=== PATIENT | male | born 1950 | race Caucasian/White ===

== ENCOUNTER → 2017-09-30 | Day surgery (SDC) | payer MEDICARE, OTHER ==
[2017-09-28 13:02] VITALS: BMI 34.2
[~2017-09-30] MED LIST: SIMETHICONE 40 MG/0.6 ML DROPS 2,000 MG/30 ML BOTTLE PO ONE
== END ==
LOC: ORWHC2ENDO 06:54
PROVIDERS: ATTEND Internal Medicine Gastroenterology
DX: D64.9 Anemia, unspecified (principal); K92.2 Gastrointestinal hemorrhage, unspecified; N18.6 End stage renal disease; Z99.2 Dependence on renal dialysis
CPT/HCPCS: 91110

== ENCOUNTER 2018-01-06 01:01 | Inpatient (IN) | payer MEDICARE, OTHER ==
--- NOTE | 2018-01-06 01:30 | ED ---
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 The patient states that he had started having symptoms just prior to lunch. He was seen at [facility] for this pain, stating that they performed blood tests and an ultrasound. He states they told him that he had gallstones and they [facility]. The patient states that he has not really had any change in the pain and per was hoping to receive some pain relief in addition to a definitive diagnosis. He indicates diffuse, constant, moderate pain. It is an aching and a fullness. States his abdomen does feel distended. He has not noted worsening or relieving factors. They did try a couple of oral medications any states that it didn't really get much relief. He has had some nausea. No change in bowel movements. No change in urination, with the patient states that he is on dialysis. he did have a normal dialysis session early this morning MD Complaint: abdominal pain Onset/Timin -: hour(s) Location: diffuse Migration to: no migration Quality: cramping, aching, fullness Consistency: constant Improves With: nothing Worsens With: nothing Associated Symptoms: nausea - Related Data Home Medications Medication Instructions Recorded Confirmed Aspirin EC [Ecotrin Low Dose] 81 mg PO DAILY 12/25/15 09/28/17 Folic Acid 1 mg PO DAILY 12/25/15 09/28/17 Rivaroxaban [Xarelto] 20 mg PO W/SUPPER 12/25/15 09/28/17 Thiamine [Vitamin B-1] 100 mg PO DAILY 12/25/15 09/28/17 Furosemide [Lasix] 40 mg PO BID 01/28/16 09/28/17 Levothyroxine Sodium [Synthroid] 25 mcg PO DAILY 01/28/16 09/28/17 Omeprazole [PriLOSEC] 20 mg PO AC-BRKFST 09/28/17 09/28/17 Sevelamer [Renvela] 800 mg PO AC-TID 09/28/17 09/28/17 predniSONE 10 mg PO DAILY 09/28/17 09/28/17 Previous Rx's Medication Instructions Recorded Ipratropium-Albuterol Nebulize 3 ml INHALATION RT-QID ampul.neb 02/17/16 [Duoneb 0.5 mg-3 mg/3 ml Soln] Allergies Allergy/AdvReac Type Severity Reaction Status Date / Time No Known Allergies Allergy Verified 09/28/17 12:42 Review of Systems ROS Statement: Those systems with pertinent positive or pertinent negative responses have been documented in the HPI. ROS Other: All systems not noted in ROS Statement are negative. Constitutional: Denies: fever, chills, weakness Respiratory: Denies: cough, dyspnea Cardiovascular: Denies: chest pain, palpitations, edema Gastrointestinal: Reports: abdominal pain, nausea. Denies: vomiting, diarrhea, constipation Musculoskeletal: Denies: back pain Skin: Denies: rash Neurological: Denies: headache, weakness, numbness Past Medical History Past Medical History: Atrial Fibrillation, Coronary Artery Disease (CAD), Chest Pain / Angina, Heart Failure, COPD, Diabetes Mellitus, GERD/Reflux, GI Bleed, Hyperlipidemia, Hypertension, Renal Disease, Respiratory Disorder, Thyroid Disorder Additional Past Medical History / Comment(s): Other HX: Cardiac arrest with CPR and prolonged intubation requiring trach and peg, NIDDM type II, polyneuropathy, bowel obstruction, hiatal hernia, 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 O2/3L NC History of Any Multi-Drug Resistant Organisms: MRSA Date of last positivie culture/infection: 12/25/15 MDRO Source:: BLOOD Additional Past Surgical History / Comment(s): 01/2016 PICC line for ABX, 05/2013 trach and peg, 1992 torn larynx with surgical repair. OTHER SURGICAL HX UNKNOWN TO F STAFF Past Anesthesia/Blood Transfusion Reactions: No Reported Reaction Additional Past Anesthesia/Blood Transfusion Reaction / Comment(s): Pt received blood with last admission 12/2015 without reaction. Past Psychological History: No Psychological Hx Reported Smoking Status: Former smoker Past Alcohol Use History: None Reported Past Drug Use History: None Reported - Past Family History Father Family Medical History: Cancer Mother Family Medical History: Cancer Brother(s) Family Medical History: No Reported History Sister(s) Family Medical History: No Reported History Daughter(s) Family Medical History: No Reported History Son(s) Family Medical History: No Reported History General Exam Limitations: no limitations General appearance: alert, in no apparent distress, obese Head exam: Present: atraumatic, normocephalic Eye exam: Present: normal appearance. Absent: scleral icterus, conjunctival injection Respiratory exam: Present: normal lung sounds bilaterally. Absent: respiratory distress, wheezes, rales, rhonchi, stridor Cardiovascular Exam: Present: regular rate, normal rhythm, normal heart sounds. Absent: systolic murmur, diastolic murmur, rubs, gallop GI/Abdominal exam: Present: soft, distended, tenderness (Mild diffuse tenderness without rebound or guarding), diminished bowel sounds. Absent: guarding, rebound, rigid, mass, pulsatile mass, hernia Extremities exam: Present: normal inspection, normal capillary refill. Absent: pedal edema, calf tenderness Back exam: Absent: CVA tenderness (R), CVA tenderness (L) Neurological exam: Present: alert Skin exam: Present: warm, dry, intact, normal color. Absent: rash Course Vital Signs 01/06/18 01:03 Temperature 98.4 F Pulse Rate 82 Respiratory 18 Rate Blood Pressure 152/70 Disposition Referrals: Nonstaff,Physician [Primary Care Provider] - 1-2 days
[2018-01-06] MEDS ORDERED: MORPHINE SULFATE 4 MG/ML SYRINGE IV STA (02:10)
[2018-01-06] MEDS ORDERED: NALOXONE 0.4 MG/ML 1 ML VIAL IV PRN (04:11)
[2018-01-06] MEDS ORDERED: HYDROcodone/APAP 5-325MG 1 EACH TAB PO PRN (04:11)
[2018-01-06] MEDS ORDERED: ONDANSETRON 4 MG/2 ML VIAL IVP PRN (04:11)
[2018-01-06] MEDS ORDERED: MORPHINE SULFATE 4 MG/ML SYRINGE IV PRN (04:11)
[2018-01-06] MEDS: LEVOTHYROXINE 25 MCG TAB PO SCH (06:38)
[2018-01-06] MEDS: SODIUM CHLORIDE 0.9% 1,000 ML IV SCH (06:41)
[2018-01-06] MEDS: IPRATROPIUM-ALBUTEROL 3 ML NEB INHALATION SCH ×4 (07:38→20:28)
[2018-01-06] MEDS: PANTOPRAZOLE 40 MG TABLET PO SCH ×2 (07:53→08:14)
[2018-01-06] MEDS: THIAMINE 100 MG TAB PO SCH (07:53)
[2018-01-06] MEDS: FOLIC ACID 1 MG TAB PO SCH (07:53)
[2018-01-06] MEDS: SEVELAMER 800 MG TAB PO SCH ×3 (07:53→16:37)
[2018-01-06] MEDS: ASPIRIN 81 MG PO SCH (07:53)
[2018-01-06] MEDS: FUROSEMIDE 40 MG TAB PO SCH ×2 (08:14→21:47)
[2018-01-06] MEDS: FAMOTIDINE 20 MG TAB PO SCH ×2 (08:14→21:47)
[2018-01-06] MEDS: predniSONE 10 MG TAB PO SCH (08:15)
[2018-01-06 08:17] LABS: Basophils % (A) 0 %; Eosinophils # (A) 0.1 k/uL (0-0.7); Eosinophils % (A) 1 %; HCT 41.3 % (39.0-53.0); HGB 13.8 gm/dL (13.0-17.5); Lymphocytes # (A) 2.1 k/uL (1.0-4.8); Lymphocytes % (A) 22 %; MCH 31.1 pg (25.0-35.0); MCHC 33.3 g/dL (31.0-37.0); MCV 93.4 fL (80.0-100.0); Mean Platelet Volume 6.7; Monocytes # (A) 0.5 k/uL (0-1.0); Monocytes % (A) 6 %; Neutrophils # (A) 6.9 k/uL (1.3-7.7); Neutrophils % (A) 70 %; Platelet Count 212 k/uL (150-450); RBC 4.42 m/uL (4.30-5.90); RDW 15.3 % (11.5-15.5); WBC 9.9 k/uL (3.8-10.6)
[2018-01-06 08:31] LABS: Calcium 9.3 mg/dL (8.4-10.2); Potassium 4.2 mmol/L (3.5-5.1); Total Bilirubin 3.4 mg/dL (0.2-1.3); Total Protein 6.9 g/dL (6.3-8.2)
--- NOTE | 2018-01-06 12:10 | HP ---
HISTORY AND PHYSICAL CHIEF COMPLAINT: Abdominal pain for 1 day. HISTORY OF PRESENT ILLNESS: First known admission for this 67-year-old white male who has chronic kidney disease and is end-stage on dialysis. He started to have somewhat generalized upper abdominal pain. He lives in the [place] [facility]. He was taken to the emergency room where he was evaluated and found to have stones and then was sent back to the [place] [facility]. The pain continued and got worse and had some nausea and vomiting. He had chills. He came to emergency room here and was admitted with cholecystitis. REVIEW OF SYSTEMS: He has had no CVAs, headaches, neurologic problems, change in the vision or the hearing, chest pain, cough, hemoptysis, murmurs, rheumatic fever, heart disease, hypertension, orthopnea, PND, murmurs, rheumatic fever, etc. Under gastrointestinal, he has had no hematemesis, melena, hematochezia, jaundice, etc. Past medical history, family history, and personal and social histories revealed that he is not allergic to any medication. Surgically he has had placement of his fistula for dialysis. MEDICATIONS: Medications include aspirin, Pulmicort, folic acid, B12, DuoNeb, thyroid, Prilosec, prednisone 10 mg a day, rivaroxaban, Renvela, and thiamine. He does not smoke. Laboratory studies reveal a creatinine of 3.12 and BUN of 38. Sugar was 105. Liver functions were elevated with AST of 527 and ALT of 593. Bilirubin was 3.4. PHYSICAL EXAM: Temperature 97.8. Pulse is 80 and irregularly irregular. Respirations are 18. Blood pressure is 115/53. GENERAL: He appeared to be slightly overweight and in no serious distress. Skin color is normal. Skin is warm, dry. Lymph nodes are not enlarged. Head, ears, eyes, nose, mouth, and throat were normal and neck veins did not appear to be distended. Chest was clear. Cardiac exam demonstrated atrial fibrillation with no murmurs or extra sounds. The abdomen was slightly distended and tender over the upper aspect. Bowel sounds were present. Extremities are normal. Neurological, he is intact. IMPRESSION: 1. Cholecystitis and cholelithiasis. 2. End-stage renal disease. 3. Atrial fibrillation. PLAN: 1. Bed rest. 2. IV fluids. 3. Surgery consult. 4. Nephrology consult. 5. Prepare for surgery. He is cleared at this time. Attention has to be given to the fact that he has been on rivaroxaban up until about 48 hours ago. MMODL / IJN: [id number] /
--- NOTE | 2018-01-06 14:27 | P.GSCN ---
History of Present Illness Consult date: 01/06/18 Reason for Consult: Right upper quadrant pain History of present illness: Patient came to the ER yesterday with complaints of ongoing pain in the upper abdomen and right upper quadrant. Pain just started yesterday morning. Patient stays at a halfway. He was initially seen at [facility]. Patient was found have gallstones. Repeat labs done today show elevated liver enzymes worrisome for choledocholithiasis. He feels bloated. Patient is on hemodialysis. He is afebrile. White blood cell count normal. Review of Systems The patient denies any acute changes in vision or hearing, no dysphagia or odynophagia, no chest pain or shortness of breath, no dysuria or hematuria, no headache, no runny nose, no rectal bleeding or melena, no unexplained weight loss Past Medical History Past Medical History: Atrial Fibrillation, Coronary Artery Disease (CAD), Chest Pain / Angina, Heart Failure, COPD, Diabetes Mellitus, GERD/Reflux, GI Bleed, Hyperlipidemia, Hypertension, Renal Disease, Respiratory Disorder, Thyroid Disorder Additional Past Medical History / Comment(s): Other HX: Cardiac arrest with CPR and prolonged intubation requiring trach and peg, NIDDM type II, polyneuropathy, bowel obstruction, hiatal hernia, 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 O2/3L NC History of Any Multi-Drug Resistant Organisms: MRSA Year Discovered:: 12/25/15 MDRO Source:: BLOOD Additional Past Surgical History / Comment(s): 01/2016 PICC line for ABX, 05/2013 trach and peg, 1992 torn larynx with surgical repair. OTHER SURGICAL HX UNKNOWN TO F STAFF Past Anesthesia/Blood Transfusion Reactions: No Reported Reaction Additional Past Anesthesia/Blood Transfusion Reaction / Comm: Pt received blood with last admission 12/2015 without reaction. Past Psychological History: No Psychological Hx Reported Additional Psychological History / Comment(s): PT IS A & O X 3 Smoking Status: Former smoker Past Alcohol Use History: None Reported Additional Past Alcohol Use History / Comment(s): Pt smoked from 1959 until 2012. He was a 2 ppd smoker. Past Drug Use History: None Reported - Past Family History Father Family Medical History: Cancer Mother Family Medical History: Cancer Brother(s) Family Medical History: No Reported History Sister(s) Family Medical History: No Reported History Daughter(s) Family Medical History: No Reported History Son(s) Family Medical History: No Reported History Medications and Allergies Home Medications Medication Instructions Recorded Confirmed Type Aspirin EC [Ecotrin Low Dose] 81 mg PO DAILY 12/25/15 01/06/18 History Folic Acid 1 mg PO DAILY 12/25/15 01/06/18 History Rivaroxaban [Xarelto] 20 mg PO W/SUPPER 12/25/15 01/06/18 History Thiamine [Vitamin B-1] 100 mg PO DAILY 12/25/15 01/06/18 History Furosemide [Lasix] 40 mg PO BID 01/28/16 01/06/18 History Levothyroxine Sodium [Synthroid] 25 mcg PO DAILY 01/28/16 01/06/18 History Ipratropium-Albuterol Nebulize 3 ml INHALATION RT-QID ampul.neb 02/17/16 Rx [Duoneb 0.5 mg-3 mg/3 ml Soln] Omeprazole [PriLOSEC] 20 mg PO AC-BRKFST 09/28/17 01/06/18 History Sevelamer [Renvela] 800 mg PO AC-TID 09/28/17 01/06/18 History predniSONE 10 mg PO DAILY 09/28/17 01/06/18 History B Complex W-C No.20/Folic Acid 1 mg PO DAILY 01/06/18 01/06/18 History [Renal Caps Softgel] Budesonide [Pulmicort] 1 mg INHALATION RT-BID 01/06/18 01/06/18 History Allergies Allergy/AdvReac Type Severity Reaction Status Date / Time No Known Allergies Allergy Verified 09/28/17 12:42 Surgical - Exam Vital Signs Temp Pulse Resp BP 98.4 F 82 18 152/70 01/06/18 01:03 01/06/18 01:03 01/06/18 01:03 01/06/18 01:03 Physical exam: General: Well-developed, well-nourished HEENT: Normocephalic, sclerae nonicteric Abdomen: Mild right upper quadrant tenderness, nondistended Extremities: No edema Neuro: Alert and oriented Results - Labs 01/06/18 07:56 01/06/18 08:00 Abnormal Lab Results - Last 24 Hours (Table) 01/06/18 Range/Units 08:00 Chloride 93 L (98-107) mmol/L Carbon Dioxide 35 H (22-30) mmol/L BUN 38 H (9-20) mg/dL Creatinine 3.12 H (0.66-1.25) mg/dL Glucose 105 H (74-99) mg/dL Total Bilirubin 3.4 H (0.2-1.3) mg/dL AST 527 H (17-59) U/L ALT 593 H (21-72) U/L Diabetes panel 01/06/18 Range/Units 08:00 Sodium 140 (137-145) mmol/L Potassium 4.2 (3.5-5.1) mmol/L Chloride 93 L (98-107) mmol/L Carbon Dioxide 35 H (22-30) mmol/L BUN 38 H (9-20) mg/dL Creatinine 3.12 H (0.66-1.25) mg/dL Glucose 105 H (74-99) mg/dL Calcium 9.3 (8.4-10.2) mg/dL AST 527 H (17-59) U/L ALT 593 H (21-72) U/L Alkaline Phosphatase 114 (38-126) U/L Total Protein 6.9 (6.3-8.2) g/dL Albumin 4.0 (3.5-5.0) g/dL Calcium panel 01/06/18 Range/Units 08:00 Calcium 9.3 (8.4-10.2) mg/dL Albumin 4.0 (3.5-5.0) g/dL Pituitary panel 01/06/18 Range/Units 08:00 Sodium 140 (137-145) mmol/L Potassium 4.2 (3.5-5.1) mmol/L Chloride 93 L (98-107) mmol/L Carbon Dioxide 35 H (22-30) mmol/L BUN 38 H (9-20) mg/dL Creatinine 3.12 H (0.66-1.25) mg/dL Glucose 105 H (74-99) mg/dL Calcium 9.3 (8.4-10.2) mg/dL Adrenal panel 01/06/18 Range/Units 08:00 Sodium 140 (137-145) mmol/L Potassium 4.2 (3.5-5.1) mmol/L Chloride 93 L (98-107) mmol/L Carbon Dioxide 35 H (22-30) mmol/L BUN 38 H (9-20) mg/dL Creatinine 3.12 H (0.66-1.25) mg/dL Glucose 105 H (74-99) mg/dL Calcium 9.3 (8.4-10.2) mg/dL Total Bilirubin 3.4 H (0.2-1.3) mg/dL AST 527 H (17-59) U/L ALT 593 H (21-72) U/L Alkaline Phosphatase 114 (38-126) U/L Total Protein 6.9 (6.3-8.2) g/dL Albumin 4.0 (3.5-5.0) g/dL Assessment and Plan (1) Choledocholithiasis with acute cholecystitis Narrative/Plan: Patient with increasing liver enzymes. Suspect choledocholithiasis. May require ERCP. Repeat labs tomorrow. We'll consult GI. Current Visit: Yes Status: Acute Code(s): K80.42 - CALCULUS OF BILE DUCT W ACUTE CHOLECYSTITIS W/O OBSTRUCTION SNOMED Code(s): 31685576
[2018-01-06] MEDS ORDERED: RIVAROXABAN 20 MG TAB PO SCH (17:30)
[2018-01-06] MEDS: PIPERACILLIN-TAZOBACTAM 3.375 GM in DEXTROSE/WATER 1 50ML.BAG IVPB SCH (18:34)
--- NOTE | 2018-01-06 19:10 | P.CONS ---
History of Present Illness - Reason for Consult Consult date: 01/06/18 Elevated liver enzymes Requesting physician: Jairo Kenny - Chief Complaint Abdominal pain - History of Present Illness The patient is a pleasant 67 yo male with a medical history significant for CAD , Atrial fibrillation on Xarelto (last dose Tuesday night), ESRD on HD and DM who presents after an episode of abdominal pain. The patient reports feeling bloated over the past few weeks but that the pain started abruptly prior to presentation. It was described as sharp in the RUQ, constant and without radiation. He had 2 episodes of associated nause and vomiting. No diarrhea, constipation, melena or hematochezia. Liver enzyme on presentation were elevated with increases in TB 0.9 to 3.4, AP 89 to 114, AST 119 to 527 and ALT 102 to 593. US showed distended gallbladder with cholelithiasis and a normal 6.6 mm CBD. Denies any fever chills or weakness. Past Endoscopy: 07/2017 Normal EGD and colonoscopy with polypectomy and hemorrhoids. Review of Systems Constitutional: Denies anorexia, Denies chills, Denies chronic headaches, Denies fever, Denies lethargy Eyes: denies blurred vision, denies decreased vision Ears: deny: earache, tinnitus Ears, nose, mouth and throat: Denies dysphagia, Denies epistaxis, Denies headache Cardiovascular: Denies chest pain, Denies irregular heart beat, Denies lightheadedness Respiratory: Denies congestion, Denies cough, Denies hemoptysis Gastrointestinal: Reports abdominal pain, Denies BRBPR, Denies change in bowel habits, Denies coffee ground emesis, Denies diarrhea, Denies hematemesis, Denies jaundice Genitourinary: Denies flank pain, Denies hematuria Musculoskeletal: Denies fractures, Denies gait dysfunction Integumentary: Denies color changes, Denies lesions, Denies pruritus, Denies rash Neurological: Denies change in speech, Denies confusion Psychiatric: Denies confusion, Denies irritability, Denies memory loss Endocrine: Denies excessive thirst, Denies flushing, Denies palpitations Past Medical History Past Medical History: Atrial Fibrillation, Coronary Artery Disease (CAD), Chest Pain / Angina, Heart Failure, COPD, Diabetes Mellitus, GERD/Reflux, GI Bleed, Hyperlipidemia, Hypertension, Renal Disease, Respiratory Disorder, Thyroid Disorder Additional Past Medical History / Comment(s): Other HX: Cardiac arrest with CPR and prolonged intubation requiring trach and peg, NIDDM type II, polyneuropathy, bowel obstruction, hiatal hernia, 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 O2/3L NC History of Any Multi-Drug Resistant Organisms: MRSA Year Discovered:: 12/25/15 MDRO Source:: BLOOD Additional Past Surgical History / Comment(s): 01/2016 PICC line for ABX, 05/2013 trach and peg, 1992 torn larynx with surgical repair. OTHER SURGICAL HX UNKNOWN TO F STAFF Past Anesthesia/Blood Transfusion Reactions: No Reported Reaction Additional Past Anesthesia/Blood Transfusion Reaction / Comm: Pt received blood with last admission 12/2015 without reaction. Past Psychological History: No Psychological Hx Reported Additional Psychological History / Comment(s): PT IS A & O X 3 Smoking Status: Former smoker Past Alcohol Use History: None Reported Additional Past Alcohol Use History / Comment(s): Pt smoked from 1959 until 2012. He was a 2 ppd smoker. Past Drug Use History: None Reported - Past Family History Father Family Medical History: Cancer Mother Family Medical History: Cancer Brother(s) Family Medical History: No Reported History Sister(s) Family Medical History: No Reported History Daughter(s) Family Medical History: No Reported History Son(s) Family Medical History: No Reported History Medications and Allergies Home Medications Medication Instructions Recorded Confirmed Type Aspirin EC [Ecotrin Low Dose] 81 mg PO DAILY 12/25/15 01/06/18 History Folic Acid 1 mg PO DAILY 12/25/15 01/06/18 History Rivaroxaban [Xarelto] 20 mg PO W/SUPPER 12/25/15 01/06/18 History Thiamine [Vitamin B-1] 100 mg PO DAILY 12/25/15 01/06/18 History Furosemide [Lasix] 40 mg PO BID 01/28/16 01/06/18 History Levothyroxine Sodium [Synthroid] 25 mcg PO DAILY 01/28/16 01/06/18 History Ipratropium-Albuterol Nebulize 3 ml INHALATION RT-QID ampul.neb 02/17/16 Rx [Duoneb 0.5 mg-3 mg/3 ml Soln] Omeprazole [PriLOSEC] 20 mg PO AC-BRKFST 09/28/17 01/06/18 History Sevelamer [Renvela] 800 mg PO AC-TID 09/28/17 01/06/18 History predniSONE 10 mg PO DAILY 09/28/17 01/06/18 History B Complex W-C No.20/Folic Acid 1 mg PO DAILY 01/06/18 01/06/18 History [Renal Caps Softgel] Budesonide [Pulmicort] 1 mg INHALATION RT-BID 01/06/18 01/06/18 History Allergies Allergy/AdvReac Type Severity Reaction Status Date / Time No Known Allergies Allergy Verified 09/28/17 12:42 Physical Exam Vitals: Vital Signs Temp Pulse Pulse Pulse Resp BP BP 01/06/18 15:58 88 16 01/06/18 15:48 87 16 01/06/18 15:27 18 01/06/18 15:00 98.0 F 85 16 124/70 01/06/18 11:34 80 01/06/18 11:23 84 01/06/18 07:55 80 01/06/18 07:41 84 01/06/18 06:01 97.8 F 76 18 115/53 01/06/18 05:05 97.8 F 67 16 142/66 01/06/18 04:56 16 01/06/18 03:45 59 L 17 157/69 01/06/18 03:00 63 18 162/70 01/06/18 02:13 100 16 169/81 01/06/18 01:03 98.4 F 82 18 152/70 Pulse Ox 01/06/18 15:58 01/06/18 15:48 97 01/06/18 15:27 01/06/18 15:00 99 01/06/18 11:34 01/06/18 11:23 01/06/18 07:55 01/06/18 07:41 01/06/18 06:01 99 01/06/18 05:05 100 01/06/18 04:56 01/06/18 03:45 100 01/06/18 03:00 100 01/06/18 02:13 100 01/06/18 01:03 Intake and Output 01/06/18 01/06/18 01/06/18 06:59 14:59 22:59 Other: # Voids 0 2 Weight 99.79 kg - Constitutional General appearance: cooperative, no acute distress, obese - EENT Eyes: anicteric sclerae, no scleral icterus, normal appearance ENT: no hard of hearing, no thrush - Respiratory Respiratory: bilateral: CTA, negative: rhonchi, wheezing - Cardiovascular Rhythm: irregularly irregular Heart sounds: normal: S1, S2 - Gastrointestinal General gastrointestinal: no distended, normal bowel sounds, no rigid, soft, tenderness - Integumentary Integumentary: no cellulitis, no pale, no rash - Musculoskeletal Musculoskeletal: no gait normal, no generalized weakness - Psychiatric Psychiatric: A&O x's 3, appropriate affect Results CBC & Chem 7: 01/06/18 07:56 01/06/18 08:00 Labs: Abnormal Lab Results - Last 24 Hours (Table) 01/06/18 Range/Units 08:00 Chloride 93 L (98-107) mmol/L Carbon Dioxide 35 H (22-30) mmol/L BUN 38 H (9-20) mg/dL Creatinine 3.12 H (0.66-1.25) mg/dL Glucose 105 H (74-99) mg/dL Total Bilirubin 3.4 H (0.2-1.3) mg/dL AST 527 H (17-59) U/L ALT 593 H (21-72) U/L US - abdomen: report reviewed (US showed distended gallbladder with cholelithiasis and a normal 6.6 mm CBD. Denies any fever chills or weakness.) Assessment and Plan (1) Elevated liver enzymes Narrative/Plan: Unclear etiology, may be secondary to a passed stone in a patient who has cholelithiasis on US with a normal CBD or choledocholithiasis. Liver enymes are elevated and if they do not return to normal or trend down tomorrow and suspicion remains high will coyle on ERCP. Current Visit: Yes Status: Acute Code(s): R74.8 - ABNORMAL LEVELS OF OTHER SERUM ENZYMES SNOMED Code(s): 109675497 (2) Symptomatic cholelithiasis Narrative/Plan: As above. Current Visit: Yes Status: Acute Code(s): K80.20 - CALCULUS OF GALLBLADDER W /O CHOLECYSTITIS W/O OBSTRUCTION SNOMED Code(s): 583494946 Plan: Okay for diet, if surgery agrees NPO after midnight in case ERCP is needed of cholecystectomy Appreciate surgical recommendations Trend LFTs.. Liver enzymes are elevated and if they do not return to normal tomorrow/ trend down and suspicion remains high will coyle on ERCP. History of Hepatitis C will need outpatient follow up Thank you for allowig us to participate in the care of this patient, we will continue to follow
[2018-01-06 19:31] LABS: Hepatitis A Antibody IgM Non-Reactive (Non-Reactive); Hepatitis B Core IgM Non-Reactive (Non-Reactive)
[2018-01-06] MEDS: BUDESONIDE 1 MG/2 ML NEBU INHALATION SCH (20:28)
[2018-01-07] MEDS: PIPERACILLIN-TAZOBACTAM 3.375 GM in DEXTROSE/WATER 1 50ML.BAG IVPB SCH ×4 (00:38→23:20)
[2018-01-07] MEDS: SODIUM CHLORIDE 0.9% 1,000 ML IV SCH (03:38)
[2018-01-07] MEDS: LEVOTHYROXINE 25 MCG TAB PO SCH (05:10)
[2018-01-07 07:58] LABS: Prothrombin Time 10.1 sec (9.0-12.0)
[2018-01-07 08:02] LABS: Albumin 3.6 g/dL (3.5-5.0); Calcium 8.9 mg/dL (8.4-10.2); Potassium 3.7 mmol/L (3.5-5.1); Total Bilirubin 2.1 mg/dL (0.2-1.3); Total Protein 6.2 g/dL (6.3-8.2)
[2018-01-07] MEDS: BUDESONIDE 1 MG/2 ML NEBU INHALATION SCH ×2 (08:13→20:10)
[2018-01-07] MEDS: IPRATROPIUM-ALBUTEROL 3 ML NEB INHALATION SCH ×4 (08:13→20:10)
[2018-01-07] MEDS: PANTOPRAZOLE 40 MG TABLET PO SCH (09:02)
[2018-01-07] MEDS: FUROSEMIDE 40 MG TAB PO SCH ×2 (09:02→20:26)
[2018-01-07] MEDS: predniSONE 10 MG TAB PO SCH (09:02)
[2018-01-07] MEDS: SEVELAMER 800 MG TAB PO SCH ×3 (09:02→18:00)
[2018-01-07] MEDS: FAMOTIDINE 20 MG TAB PO SCH ×2 (09:02→20:26)
[2018-01-07] MEDS: THIAMINE 100 MG TAB PO SCH (09:03)
[2018-01-07] MEDS: ASPIRIN 81 MG PO SCH (09:05)
--- NOTE | 2018-01-07 10:05 | P.PN ---
Progress Note - Text Progress Note Date: 01/07/18 The patient is resting comfortably in his bed. He denies any abdominal pain. On exam his vital signs are stable. His abdomen soft. Patient's liver function tests have improved slightly. We will will await GI input regarding possible ERCP. Apparently he will be dialyzed today.
[2018-01-07 13:41] LABS: Basophils % (A) 1 %; Eosinophils # (A) 0.1 k/uL (0-0.7); Eosinophils % (A) 2 %; HCT 36.4 % (39.0-53.0); HGB 11.8 gm/dL (13.0-17.5); Lymphocytes # (A) 1.3 k/uL (1.0-4.8); Lymphocytes % (A) 20 %; MCH 30.5 pg (25.0-35.0); MCHC 32.6 g/dL (31.0-37.0); MCV 93.7 fL (80.0-100.0); Mean Platelet Volume 7.6; Monocytes # (A) 0.4 k/uL (0-1.0); Monocytes % (A) 6 %; Neutrophils # (A) 4.7 k/uL (1.3-7.7); Neutrophils % (A) 70 %; Platelet Count 189 k/uL (150-450); RBC 3.88 m/uL (4.30-5.90); RDW 15.7 % (11.5-15.5); WBC 6.7 k/uL (3.8-10.6)
[2018-01-07 14:13] LABS: Lipase 4932 U/L (23-300)
[2018-01-07 14:20] LABS: Amylase 1516 U/L (30-110)
[2018-01-07] MEDS: FOLIC ACID 1 MG TAB PO SCH (14:41)
--- NOTE | 2018-01-07 22:44 | PN ---
PROGRESS NOTE CHIEF COMPLAINT: Abdominal pain. HISTORY OF PRESENT ILLNESS: This gentleman is doing fairly well, but he is intermittently still having pain. It looks as though this is gallbladder disease and he will likely be going for cholecystectomy. LABORATORY DATA: Laboratory studies reveal that his bilirubin is gone down from 3.4 to 2.1 and his liver function studies as expressed through AST and ALT are also trending down. BUN is 48 with a creatinine of 3.58. PHYSICAL EXAM: Chest is clear. Cardiac is normal. Abdomen is soft, nontender except right over the epigastrium. IMPRESSION: 1. Probable cholecystitis with associated hepatitis. 2. Renal failure. PLAN: Await further directions from Surgery. MMODL / IJN: [id number] /
[2018-01-08] MEDS: SODIUM CHLORIDE 0.9% 1,000 ML IV SCH (03:16)
[2018-01-08] MEDS: LEVOTHYROXINE 25 MCG TAB PO SCH (06:02)
[2018-01-08] MEDS: PIPERACILLIN-TAZOBACTAM 3.375 GM in DEXTROSE/WATER 1 50ML.BAG IVPB SCH ×3 (08:45→23:06)
[2018-01-08] MEDS: ASPIRIN 81 MG PO SCH (08:46)
[2018-01-08] MEDS: predniSONE 10 MG TAB PO SCH (08:46)
[2018-01-08] MEDS: FUROSEMIDE 40 MG TAB PO SCH ×2 (08:46→20:24)
[2018-01-08] MEDS: FAMOTIDINE 20 MG TAB PO SCH ×2 (08:46→20:24)
[2018-01-08] MEDS: PANTOPRAZOLE 40 MG TABLET PO SCH (08:46)
[2018-01-08] MEDS: THIAMINE 100 MG TAB PO SCH (08:46)
[2018-01-08] MEDS: SEVELAMER 800 MG TAB PO SCH ×3 (08:46→16:41)
[2018-01-08] MEDS: BUDESONIDE 1 MG/2 ML NEBU INHALATION SCH ×2 (09:07→19:34)
[2018-01-08] MEDS: IPRATROPIUM-ALBUTEROL 3 ML NEB INHALATION SCH ×4 (09:07→19:34)
[2018-01-08] MEDS: FOLIC ACID 1 MG TAB PO SCH (11:56)
[2018-01-08 12:00] LABS: Albumin 3.7 g/dL (3.5-5.0); Calcium 8.7 mg/dL (8.4-10.2); Potassium 3.6 mmol/L (3.5-5.1); Total Protein 6.4 g/dL (6.3-8.2)
--- NOTE | 2018-01-08 12:35 | P.PN ---
Progress Note - Text Progress Note Date: 01/08/18 Patient is pain-free. He has no quite pain. His liver function tests have trended downward towards normal. On exam his vital signs are stable. His abdomen soft. Resolving choledocholithiasis. The patient will be scheduled for laparoscopic cholecystectomy with Dr. Vega. He will resume his care tomorrow.
--- NOTE | 2018-01-08 13:28 | PN ---
PROGRESS NOTE Patient is supposed to go today for a ERCP. He is otherwise doing fairly well. He is not having a great deal of pain. PHYSICAL EXAM: Chest is clear. Cardiac exam is normal and the abdomen looks slightly tender over the epigastrium. IMPRESSION: 1. Cholecystitis. 2. Elevated liver function studies. 3. Renal failure. 4. Rule out common duct stone. PLAN: ERCP today. MMROBB / SARAHN: [id number] /
--- NOTE | 2018-01-08 17:37 | CONS ---
CONSULTATION DATE OF SERVICE: 01/08/2018. REASON FOR CONSULT: End-stage renal disease. HISTORY OF PRESENT ILLNESS: The patient is a 67-year-old male with end-stage renal disease, on hemodialysis on a Tuesday, , Tuesday schedule. He was admitted to the hospital with abdominal pain. The patient was found to have gallstones and he is scheduled for laparoscopic cholecystectomy with Dr. Springer tomorrow. The patient denies any diarrhea, chest pain, shortness of breath. He is currently afebrile. PAST MEDICAL HISTORY: End-stage renal disease, CKD mineral bone disorder, coronary artery disease, atrial fibrillation, COPD, type 2 diabetes, gastroesophageal reflux disease, history of GI bleed, anemia, hypothyroidism, hyperlipidemia, history of cardiac arrest, history of bowel obstruction. PAST SURGICAL HISTORY: Trach and PEG, PICC line, AV fistula. SOCIAL HISTORY: Patient is a former smoker. No history of drug abuse or alcohol abuse. MEDICATIONS: Medications at home include: 1. Aspirin. 2. Xarelto. 3. Vitamin B1. 4. Lasix. 5. Synthroid. 6. Prilosec. 7. Renvela. 8. Prednisone. 9. Aspirin. 10.DuoNeb. ALLERGIES: None. REVIEW OF SYSTEMS: As per HPI. PHYSICAL EXAMINATION: Patient is currently comfortable, awake, alert, oriented x3, not in any acute distress. Blood pressure is 123/67, heart rate is 72 per minute. He is afebrile. Examination of the heart S1, S2. Examination of lungs, bilateral breath sounds are heard. Abdomen is soft, nontender. Examination of lower extremities shows no significant edema. SECURITY SUPPORT ANALYST exam is grossly intact. LABS: Sodium 135, potassium 3.6, BUN 24, serum creatinine 3.0. Amylase was 1516, lipase 4932, down to 123 now. ASSESSMENT: 1. End-stage renal disease on hemodialysis on a Tuesday, , Tuesday schedule. Patient will be dialyzed again on Tuesday. 2. Choledocholithiasis, scheduled for laparoscopic cholecystectomy tomorrow. 3. History of chronic obstructive pulmonary disease. 4. History of coronary artery disease. 5. Chronic kidney disease with disorder, maintained on Renvela. 6. Hypothyroidism, currently on Synthroid. PLAN: Next dialysis will be on Tuesday. Monitor electrolytes. Thank you for this consultation. We will continue to follow the patient with you during his hospitalization. IRAJ / SARAHN: [id number] /
[2018-01-09] MEDS: SODIUM CHLORIDE 0.9% 1,000 ML IV SCH (04:40)
[2018-01-09] MEDS: LEVOTHYROXINE 25 MCG TAB PO SCH (05:44)
[2018-01-09] MEDS: BUDESONIDE 1 MG/2 ML NEBU INHALATION SCH ×2 (07:47→21:52)
[2018-01-09] MEDS: IPRATROPIUM-ALBUTEROL 3 ML NEB INHALATION SCH ×4 (07:47→21:52)
[2018-01-09] MEDS: PIPERACILLIN-TAZOBACTAM 3.375 GM in DEXTROSE/WATER 1 50ML.BAG IVPB SCH ×3 (08:30→23:25)
[2018-01-09] MEDS: THIAMINE 100 MG TAB PO SCH (08:34)
[2018-01-09] MEDS: FUROSEMIDE 40 MG TAB PO SCH ×2 (08:34→20:19)
[2018-01-09] MEDS: FAMOTIDINE 20 MG TAB PO SCH (08:34)
[2018-01-09] MEDS: SEVELAMER 800 MG TAB PO SCH ×3 (08:34→17:13)
[2018-01-09] MEDS: predniSONE 10 MG TAB PO SCH (08:34)
[2018-01-09] MEDS: FOLIC ACID 1 MG TAB PO SCH (08:35)
[2018-01-09] MEDS: ASPIRIN 81 MG PO SCH (09:55)
[2018-01-09 10:22] LABS: HCV Quant Log <1.08 (<1.08); HCV Quantitative Result <12 IU/mL (<12)
[2018-01-09 11:05] LABS: Albumin 3.9 g/dL (3.5-5.0); Calcium 9.1 mg/dL (8.4-10.2); Potassium 3.8 mmol/L (3.5-5.1); Total Bilirubin 1.1 mg/dL (0.2-1.3); Total Protein 6.9 g/dL (6.3-8.2)
[2018-01-09 11:15] LABS: Basophils % (A) 1 %; Eosinophils # (A) 0.1 k/uL (0-0.7); Eosinophils % (A) 2 %; HCT 41.7 % (39.0-53.0); HGB 13.6 gm/dL (13.0-17.5); Lymphocytes # (A) 1.3 k/uL (1.0-4.8); Lymphocytes % (A) 18 %; MCH 30.5 pg (25.0-35.0); MCHC 32.6 g/dL (31.0-37.0); MCV 93.5 fL (80.0-100.0); Mean Platelet Volume 6.5; Monocytes # (A) 0.5 k/uL (0-1.0); Monocytes % (A) 7 %; Neutrophils # (A) 5.1 k/uL (1.3-7.7); Neutrophils % (A) 71 %; Platelet Count 183 k/uL (150-450); RBC 4.46 m/uL (4.30-5.90); RDW 15.4 % (11.5-15.5); WBC 7.2 k/uL (3.8-10.6)
--- NOTE | 2018-01-09 12:06 | CDI ---
Last Revision, April 2017 Documentation Clarification Form Date: 01/09/2018 11:53:35 AM From: Sharonda Weiner RN, CCDS Admit Date: 01/07/2018 8:37:00 AM Patient Name: Chris Ramirez Visit Number: [id number] ATTENTION: The Clinical Documentation Specialists (CDI) and [facility] Coding Staff appreciate your assistance in clarifying documentation. Please respond to the clarification below the line at the bottom and electronically sign. The CDI & [facility] Coding staff will review the response and follow-up if needed. Please note: Queries are made part of the Legal Health Record. If you have any questions, please contact the author of this message via ITS. Jairo Rajan MD Atrial fibrillation is documented in the PMH of the H&P and Consults and requires further specificity. History/Risk Factors: ESRD, CAD, A-Fib, COPD, HTN Clinical Indicators: 01/06 H&P: EKG/telemetry:"Cardiac exam demonstrated atrial fibrillation with no murmurs or extra sounds." Treatment: Xarelto 20 mg PO HS In your professional opinion, can you please clarify the type of atrial fibrillation, if known? Chronic/Permanent Paroxysmal Persistent Other, please specify Unable to determine Please continue to document in your progress notes and discharge summary in order to capture severity of illness and risk of mortality. Include clinical findings that support your diagnosis. MTDD
--- NOTE | 2018-01-09 12:13 | P.PN ---
<Amna Ponce Dae - Last Filed: 01/09/18 12:04> Subjective Progress Note Date: 01/09/18 67-year-old sitting up on at the bedside continues to report having right upper quadrant abdominal discomfort states it's unchanged from admission. Labs were reviewed AST 96 ALT 303 alk phos 107 lipase 80 amylase 83 total bili down to 1.1 liver enzymes trending down being followed by surgical service for symptomatic cholelithiasis ultrasound showed distended gallbladder with cholelithiasis with a normal common bile duct GIs recommendations noted liver enzymes are trending down tentatively no plan for an ERCP at this time Objective - Vital Signs Vital signs: Vital Signs Temp 97.5 F L 01/09/18 07:05 Pulse 76 01/09/18 11:54 Resp 16 01/09/18 07:05 BP 127/70 01/09/18 07:05 Pulse Ox 100 01/09/18 07:05 Intake & Output 01/08/18 01/09/18 01/09/18 18:59 06:59 18:59 Intake Total 440 Balance 440 Weight 100.5 kg Intake: Oral 440 Other: Voiding Method Toilet Toilet # Voids 2 2 # Bowel Movements 0 - Exam Physical exam 67-year-old male sitting up on the edge of the bed appears in no acute distress Lungs clear adequate air movement Heart S1-S2 audible regular Abdomen patient states less firmness less bloating but continues to have right upper quadrant abdominal discomfort no nausea no vomiting no stool Extremities no edema - Labs CBC & Chem 7: 01/09/18 10:40 01/09/18 10:45 Labs: Abnormal Lab Results - Last 24 Hours (Table) 01/09/18 Range/Units 10:45 Sodium 134 L (137-145) mmol/L Chloride 95 L (98-107) mmol/L BUN 30 H (9-20) mg/dL Creatinine 3.47 H (0.66-1.25) mg/dL Glucose 101 H (74-99) mg/dL AST 96 H (17-59) U/L ALT 303 H (21-72) U/L Assessment and Plan Assessment: Impression Present on admission right upper quadrant abdominal pain suspect symptomatic cholelithiasis Present on admission elevated liver enzymes suspect secondary to passed stone Ultrasound gallbladder with cholelithiasis and a normal common bile duct End-stage renal disease hemodialysis Choledocholithiasis with acute cholecystitis Plan Lap cholecystectomy timing to be determined by the surgeon Keep nothing by mouth for now Dialysis per nephrology's recommendations Pain control DVT and GI prophylaxis The above impression and plan of care have been discussed and directed by signing physician. Amna Ponce nurse practitioner acting as scribe for signing physician. <Chano Springer - Last Filed: 01/09/18 17:22> Objective - Vital Signs Vital signs: Vital Signs Temp 98.2 F 01/09/18 14:35 Pulse 70 01/09/18 16:26 Resp 16 01/09/18 14:35 BP 141/69 01/09/18 14:35 Pulse Ox 96 01/09/18 16:15 Intake & Output 01/08/18 01/09/18 01/09/18 18:59 06:59 18:59 Intake Total 440 Balance 440 Weight 100.5 kg Intake: Oral 440 Other: Voiding Method Toilet Toilet # Voids 2 2 2 # Bowel Movements 0 - Labs CBC & Chem 7: 01/09/18 10:40 01/09/18 10:45 Labs: Abnormal Lab Results - Last 24 Hours (Table) 01/09/18 Range/Units 10:45 Sodium 134 L (137-145) mmol/L Chloride 95 L (98-107) mmol/L BUN 30 H (9-20) mg/dL Creatinine 3.47 H (0.66-1.25) mg/dL Glucose 101 H (74-99) mg/dL AST 96 H (17-59) U/L ALT 303 H (21-72) U/L Assessment and Plan Assessment: As above. Patient doing better at this time. Liver enzymes improving. Suspect that the patient has passed a stone. We'll repeat labs tomorrow. Plan interval cholecystectomy either later during this hospitalization or possibly as an outpatient. We'll discuss further with the patient morning. (1) Choledocholithiasis with acute cholecystitis Current Visit: Yes Status: Acute Code(s): K80.42 - CALCULUS OF BILE DUCT W ACUTE CHOLECYSTITIS W/O OBSTRUCTION SNOMED Code(s): 19091249
--- NOTE | 2018-01-09 12:18 | CDI ---
Last Revision, April 2017 Documentation Clarification Form Date: 01/09/2018 12:07:00 PM From: Sharonda Weiner RN, CCDS Admit Date: 01/07/2018 8:37:00 AM Patient Name: Chris Ramirez Visit Number: [id number] ATTENTION: The Clinical Documentation Specialists (CDI) and [facility] Coding Staff appreciate your assistance in clarifying documentation. Please respond to the clarification below the line at the bottom and electronically sign. The CDI & [facility] Coding staff will review the response and follow-up if needed. Please note: Queries are made part of the Legal Health Record. If you have any questions, please contact the author of this message via ITS. Claudine Gallardo MD A diagnosis of anemia lacks specificity to accurately reflect your patients severity of condition and clarification is needed. History/Risk Factors: Anemia, hypothyroid, cardiac arrest, ESRD on HD, CAD Clinical indicators: Hemoglobin: 13.8/11.8/13.6 Hematocrit: 41.3/36.4/41.7 Treatment: Daily lab monitoring Xarelto 20 mg w/ dinner 0.9%NS @ 20 cc/hr In order to capture the severity of condition, please clarify the type of anemia and etiology if known: Anemia of chronic kidney disease Chronic blood loss anemia Iron deficiency anemia Drug induced anemia Nutritional anemia Unable to determine Other, please specify Please continue to document in your progress notes and discharge summary in order to capture severity of illness and risk of mortality. Include clinical findings that support your diagnosis. MTDD
--- NOTE | 2018-01-09 12:27 | CDI ---
Last Revision, April 2017 Documentation Clarification Form Date: 01/09/2018 12:20:18 PM From: Sharonda Weiner RN, CCDS Admit Date: 01/07/2018 8:37:00 AM Patient Name: Chris Ramirez Visit Number: [id number] ATTENTION: The Clinical Documentation Specialists (CDI) and [facility] Coding Staff appreciate your assistance in clarifying documentation. Please respond to the clarification below the line at the bottom and electronically sign. The CDI & [facility] Coding staff will review the response and follow-up if needed. Please note: Queries are made part of the Legal Health Record. If you have any questions, please contact the author of this message via ITS. Jairo Rajan MD CHF has been documented in the PMH and requires further specificity. History/Risk Factors: CHF, ESRD, CAD, HTN, Atrial Fib Clinical Indicators: VS/Pulse OX: Temp 98.4, HR 82, RR 18, B/P 152/70, spo2 100% 2l nc NO CXR and NO BNP done this admission 12/27/15 Echocardiogram Results: EF 40-45%, RV moderately enlarged Treatment: Lasix 40 mg PO BID In your professional opinion, can you please clarify the acuity and type of CHF if known? Chronic Systolic Heart Failure: Chronic Diastolic Heart Failure: Chronic Systolic & Diastolic Heart Failure: Unable to Determine Other, please specify Please continue to document in your progress notes and discharge summary in order to capture severity of illness and risk of mortality. Include clinical findings that support your diagnosis. MTDD
--- NOTE | 2018-01-09 16:42 | P.PN ---
Subjective Progress Note Date: 01/09/18 Principal diagnosis: Abdominal pain, elevated liver enzymes Patient reports he had no further episodes of pain over the weekend. He is tolerating his diet. No nausea or vomiting. Objective - Vital Signs Vital signs: Vital Signs Temp 98.2 F 01/09/18 14:35 Pulse 70 01/09/18 16:26 Resp 16 01/09/18 14:35 BP 141/69 01/09/18 14:35 Pulse Ox 96 01/09/18 16:15 Intake & Output 01/08/18 01/09/18 01/09/18 18:59 06:59 18:59 Intake Total 440 Balance 440 Weight 100.5 kg Intake: Oral 440 Other: Voiding Method Toilet Toilet # Voids 2 2 2 # Bowel Movements 0 - Exam On physical examination, patient appears comfortable in no apparent distress. HEAD: Normocephalic, atraumatic. EYES: No scleral icterus. No conjunctival injection. MOUTH: No lesions, tongue midline. NECK: Trachea midline, no gross abnormalities. CHEST: Clear to auscultation with no wheezing or rhonchi appreciated. HEART: Regular rate and rhythm. ABDOMEN: Soft, obese. Bowel sounds are positive. No organomegaly. No guarding or rigidity. EXTREMITIES: No pedal edema. SKIN: No rashes, no jaundice. NEUROLOGIC: Alert and oriented x3. No focal deficits. - Labs CBC & Chem 7: 01/09/18 10:40 01/09/18 10:45 Labs: Abnormal Lab Results - Last 24 Hours (Table) 01/09/18 Range/Units 10:45 Sodium 134 L (137-145) mmol/L Chloride 95 L (98-107) mmol/L BUN 30 H (9-20) mg/dL Creatinine 3.47 H (0.66-1.25) mg/dL Glucose 101 H (74-99) mg/dL AST 96 H (17-59) U/L ALT 303 H (21-72) U/L Assessment and Plan (1) Elevated liver enzymes Narrative/Plan: Unclear etiology, may be secondary to a passed stone in a patient who has cholelithiasis on US with a normal CBD or choledocholithiasis or other etiology. Liver enymes which were elevated on presentation have trended back down to normal levels. Low likelihood of obstruction at this time. Current Visit: Yes Status: Acute Code(s): R74.8 - ABNORMAL LEVELS OF OTHER SERUM ENZYMES SNOMED Code(s): 758834286 (2) Symptomatic cholelithiasis Narrative/Plan: As above. Current Visit: Yes Status: Acute Code(s): K80.20 - CALCULUS OF GALLBLADDER W /O CHOLECYSTITIS W/O OBSTRUCTION SNOMED Code(s): 142993492 Plan: Diet per surgery Timing of cholecystectomy to be determined by surgical service No plan for ERCP at this time Patient doing well, gastroenterology team will stand by Thank you for allowing us to participate in the care of this patient, please feel free to call us with any questions or concerns
--- NOTE | 2018-01-09 18:26 | PN ---
PROGRESS NOTE Patient is seen for followup for end-stage renal disease. He is normally maintained on a Tuesday, , Tuesday schedule. There were plans for possible cholecystectomy today. However, it appears that it is postponed to later on during this hospitalization or as outpatient. Currently, patient denies any complaints with no abdominal pain, nausea, vomiting. PHYSICAL EXAMINATION: Blood pressure is 141/69, heart rate 84 per minute. Patient is afebrile. Examination of the heart S1, S2. Examination of lungs bilateral breath sounds are heard. Abdomen is soft, nontender. Examination of lower extremities shows no evidence of edema. LAB: Show sodium 134, potassium 3.8, hemoglobin was 13.6 g/dL. Lipase and amylase are back down to normal. ASSESSMENT: 1. End-stage renal disease, on hemodialysis on a Tuesday, , Tuesday schedule. Patient will be dialyzed tomorrow. 2. Choledocholithiasis. No plans for an ERCP. The patient will likely have laparoscopic cholecystectomy either later on this admission or as outpatient. He is not scheduled for surgery today. 3. Elevated amylase and lipase levels secondary to choledocholithiasis. PLAN: Hemodialysis in a.m.. MMODL / IJN: [id number] /
--- NOTE | 2018-01-09 19:11 | PN ---
PROGRESS NOTE CHIEF COMPLAINT: Abdominal pain and possible common duct stone. HISTORY OF PRESENT ILLNESS: This gentleman is going down today for procedure. It is not clear if this will be an ERCP or cholecystectomy or both. PHYSICAL EXAM: He is afebrile. Chest is clear. Cardiac exam is normal. IMPRESSION: Cholecystitis and possible choledocholithiasis. PLAN: Await surgical intervention today. MMODL / IJN: [id number] /
[2018-01-10] MEDS: SODIUM CHLORIDE 0.9% 1,000 ML IV SCH (05:39)
[2018-01-10] MEDS: LEVOTHYROXINE 25 MCG TAB PO SCH (06:43)
[2018-01-10] MEDS: IPRATROPIUM-ALBUTEROL 3 ML NEB INHALATION SCH ×4 (07:28→20:06)
[2018-01-10] MEDS: BUDESONIDE 1 MG/2 ML NEBU INHALATION SCH ×2 (07:28→20:06)
[2018-01-10] MEDS: ASPIRIN 81 MG PO SCH (08:10)
[2018-01-10] MEDS: SEVELAMER 800 MG TAB PO SCH ×3 (08:10→17:20)
[2018-01-10] MEDS: PIPERACILLIN-TAZOBACTAM 3.375 GM in DEXTROSE/WATER 1 50ML.BAG IVPB SCH ×2 (08:10→17:20)
[2018-01-10] MEDS: PANTOPRAZOLE 40 MG TABLET PO SCH (08:10)
[2018-01-10] MEDS: predniSONE 10 MG TAB PO SCH (08:11)
[2018-01-10] MEDS: FUROSEMIDE 40 MG TAB PO SCH ×2 (08:11→20:28)
[2018-01-10] MEDS: THIAMINE 100 MG TAB PO SCH (08:11)
[2018-01-10] MEDS: FAMOTIDINE 20 MG TAB PO SCH (08:11)
[2018-01-10] MEDS: FOLIC ACID 1 MG TAB PO SCH (12:14)
--- NOTE | 2018-01-10 12:42 | P.PN ---
<Amna Ponce - Last Filed: 01/10/18 12:35> Subjective Progress Note Date: 01/10/18 67-year-old female resting comfortably in bed scheduled for hemodialysis today continues to report having right upper quadrant abdominal discomfort no labs pending afebrile Objective - Vital Signs Vital signs: Vital Signs Temp 97.6 F 01/10/18 06:09 Pulse 72 01/10/18 11:21 Resp 16 01/10/18 06:09 BP 111/56 01/10/18 06:09 Pulse Ox 100 01/10/18 06:09 Intake & Output 01/09/18 01/10/18 01/10/18 18:59 06:59 18:59 Weight 100 kg Other: Voiding Method Toilet # Voids 2 3 - Exam Physical exam 67-year-old male resting in bed Lungs clear adequate air movement no shortness of breath Heart S1-S2 audible regular denying chest Abdomen patient states less firmness less bloating but continues to have right upper quadrant abdominal discomfort no nausea no vomiting no stool Extremities no edema - Labs CBC & Chem 7: 01/09/18 10:40 01/09/18 10:45 Assessment and Plan Assessment: Impression Present on admission right upper quadrant abdominal pain suspect symptomatic cholelithiasis Present on admission elevated liver enzymes suspect secondary to passed stone Ultrasound gallbladder with cholelithiasis and a normal common bile duct End-stage renal disease hemodialysis Choledocholithiasis with acute cholecystitis Plan GI services indicating no plan for ERCP at this time Lap cholecystectomy timing to be determined by the surgeon possible later this hospitalization or set up as an outpatient Renal diet as ordered Pain control DVT and GI prophylaxis The above impression and plan of care have been discussed and directed by signing physician. Amna Ponce nurse practitioner acting as scribe for signing physician. <Chano Springer - Last Filed: 01/10/18 20:16> Objective - Vital Signs Vital signs: Vital Signs Temp 97.3 F L 01/10/18 15:00 Pulse 84 01/10/18 20:06 Resp 18 01/10/18 15:00 BP 126/70 01/10/18 15:00 Pulse Ox 98 01/10/18 16:33 Intake & Output 01/10/18 01/10/18 01/11/18 06:59 18:59 06:59 Weight 100 kg Other: Voiding Method Toilet # Voids 3 1 - Labs CBC & Chem 7: 01/09/18 10:40 01/10/18 12:01 Labs: Abnormal Lab Results - Last 24 Hours (Table) 01/10/18 Range/Units 12:01 Chloride 96 L (98-107) mmol/L Carbon Dioxide 31 H (22-30) mmol/L BUN 38 H (9-20) mg/dL Creatinine 3.92 H (0.66-1.25) mg/dL Glucose 122 H (74-99) mg/dL AST 72 H (17-59) U/L ALT 223 H (21-72) U/L Total Protein 6.2 L (6.3-8.2) g/dL Assessment and Plan Assessment: As above. Patient doing well. We'll plan outpatient cholecystectomy early next week. Anticipate discharge tomorrow morning. (1) Choledocholithiasis with acute cholecystitis Current Visit: Yes Status: Acute Code(s): K80.42 - CALCULUS OF BILE DUCT W ACUTE CHOLECYSTITIS W/O OBSTRUCTION SNOMED Code(s): 39620438
[2018-01-10 12:53] LABS: Albumin 3.6 g/dL (3.5-5.0); Calcium 8.8 mg/dL (8.4-10.2); Potassium 3.6 mmol/L (3.5-5.1); Total Bilirubin 0.8 mg/dL (0.2-1.3); Total Protein 6.2 g/dL (6.3-8.2)
--- NOTE | 2018-01-10 22:05 | PN ---
PROGRESS NOTE Patient is seen for followup for end-stage renal disease. He is currently comfortable. Denies any abdominal pain, nausea, vomiting. Blood pressure this morning was 126/70, heart rate of about 74 per minute. Patient is afebrile. EXAMINATION OF THE HEART: S1, S2. EXAMINATION OF LUNGS: Bilateral breath sounds are heard. ABDOMEN: Soft, non-tender, obese. Examination of lower extremities shows no evidence of edema. Labs show sodium 137, potassium 3.6. Hemoglobin was 13.6 yesterday. ASSESSMENT: 1. End-stage renal disease, on hemodialysis on a Tuesday, , Tuesday schedule. Patient will be dialyzed today. 2. Choledocholithiasis, scheduled for cholecystectomy possibly tomorrow. 3. Acute pancreatitis, obstructive, currently improved. PLAN: Hemodialysis today. MMODL / IJN: [id number] / MTDD
[2018-01-10 23:07] VITALS: RESP 16
--- NOTE | 2018-01-10 23:49 | P.PN ---
Subjective Progress Note Date: 01/10/18 Principal diagnosis: Abdominal pain, elevated liver enzymes No further episodes of abdominal pain. The patient is feeling better overall. He is tolerating his diet. No nausea or vomiting. Objective - Vital Signs Vital signs: Vital Signs Temp 97.6 F 01/10/18 23:00 Pulse 79 01/10/18 23:00 Resp 16 01/10/18 23:00 BP 118/62 01/10/18 23:00 Pulse Ox 93 L 01/10/18 23:00 Intake & Output 01/10/18 01/10/18 01/11/18 06:59 18:59 06:59 Weight 100 kg Other: Voiding Method Toilet # Voids 3 1 - Exam On physical examination, patient appears comfortable in no apparent distress. HEAD: Normocephalic, atraumatic. EYES: No scleral icterus. No conjunctival injection. MOUTH: No lesions, tongue midline. NECK: Trachea midline, no gross abnormalities. CHEST: Clear to auscultation with no wheezing or rhonchi appreciated. HEART: Regular rate and rhythm. ABDOMEN: Soft, obese. Bowel sounds are positive. No organomegaly. No guarding or rigidity. EXTREMITIES: No pedal edema. SKIN: No rashes, no jaundice. NEUROLOGIC: Alert and oriented x3. No focal deficits. - Labs CBC & Chem 7: 01/09/18 10:40 01/10/18 12:01 Labs: Abnormal Lab Results - Last 24 Hours (Table) 01/10/18 Range/Units 12:01 Chloride 96 L (98-107) mmol/L Carbon Dioxide 31 H (22-30) mmol/L BUN 38 H (9-20) mg/dL Creatinine 3.92 H (0.66-1.25) mg/dL Glucose 122 H (74-99) mg/dL AST 72 H (17-59) U/L ALT 223 H (21-72) U/L Total Protein 6.2 L (6.3-8.2) g/dL Assessment and Plan (1) Elevated liver enzymes Narrative/Plan: Unclear etiology, may be secondary to a passed stone in a patient who has cholelithiasis on US with a normal CBD or choledocholithiasis or other etiology. Liver enymes which were elevated on presentation have trended back down to normal levels. Low likelihood of obstruction at this time. Current Visit: Yes Status: Acute Code(s): R74.8 - ABNORMAL LEVELS OF OTHER SERUM ENZYMES SNOMED Code(s): 354035067 (2) Symptomatic cholelithiasis Narrative/Plan: As above. Current Visit: Yes Status: Acute Code(s): K80.20 - CALCULUS OF GALLBLADDER W /O CHOLECYSTITIS W/O OBSTRUCTION SNOMED Code(s): 309276201 Plan: Diet per surgery Timing of cholecystectomy to be determined by surgical service No plan for ERCP at this time Patient doing well, gastroenterology team will stand by Thank you for allowing us to participate in the care of this patient, please feel free to call us with any questions or concerns
[2018-01-11] MEDS: PIPERACILLIN-TAZOBACTAM 3.375 GM in DEXTROSE/WATER 1 50ML.BAG IVPB SCH ×2 (01:57→08:38)
[2018-01-11] MEDS: SODIUM CHLORIDE 0.9% 1,000 ML IV SCH (06:13)
[2018-01-11] MEDS: LEVOTHYROXINE 25 MCG TAB PO SCH (06:45)
[2018-01-11] MEDS: PANTOPRAZOLE 40 MG TABLET PO SCH (08:37)
[2018-01-11] MEDS: FAMOTIDINE 20 MG TAB PO SCH (08:37)
[2018-01-11] MEDS: FUROSEMIDE 40 MG TAB PO SCH (08:37)
[2018-01-11] MEDS: ASPIRIN 81 MG PO SCH (08:37)
[2018-01-11] MEDS: SEVELAMER 800 MG TAB PO SCH ×2 (08:37→11:57)
[2018-01-11] MEDS: predniSONE 10 MG TAB PO SCH (08:38)
[2018-01-11] MEDS: THIAMINE 100 MG TAB PO SCH (08:38)
[2018-01-11] MEDS: IPRATROPIUM-ALBUTEROL 3 ML NEB INHALATION SCH ×3 (08:58→15:41)
[2018-01-11] MEDS: BUDESONIDE 1 MG/2 ML NEBU INHALATION SCH (08:58)
--- NOTE | 2018-01-11 11:01 | CDI ---
Last Revision, April 2017 Documentation Clarification Form 2nd Request Date: 01/09/2018 11:53:00 AM From: Sharonda Weiner RN, CCDS Admit Date: 01/07/2018 8:37:00 AM Patient Name: Chris Ramirez Visit Number: [id number] ATTENTION: The Clinical Documentation Specialists (CDI) and [facility] Coding Staff appreciate your assistance in clarifying documentation. Please respond to the clarification below the line at the bottom and electronically sign. The CDI & [facility] Coding staff will review the response and follow-up if needed. Please note: Queries are made part of the Legal Health Record. If you have any questions, please contact the author of this message via ITS. Jairo Orourke MD Atrial fibrillation is documented in the PMH of the H&P and Consults and requires further Specificity. History/Risk Factors: ESRD, CAD, A-Fib, COPD, HTN Clinical Indicators: 01/06 H&P: EKG/telemetry:"Cardiac exam demonstrated atrial fibrillation with no murmurs or extra sounds." Treatment: Xarelto 20 mg PO HS In your professional opinion, can you please clarify the type of atrial fibrillation, if known? Chronic/Permanent Paroxysmal Persistent Other, please specify Unable to determine Please continue to document in your progress notes and discharge summary in order to capture severity of illness and risk of mortality. Include clinical findings that support your diagnosis. MTDD
--- NOTE | 2018-01-11 11:06 | CDI ---
Last Revision, April 2017 Documentation Clarification Form 2nd Request Date: 01/09/2018 12:07:00 PM From: Sharonda Weiner RN, CCDS Admit Date: 01/07/2018 8:37:00 AM Patient Name: Chris Ramirez Visit Number: [id number] ATTENTION: The Clinical Documentation Specialists (CDI) and [facility] Coding Staff appreciate your assistance in clarifying documentation. Please respond to the clarification below the line at the bottom and electronically sign. The CDI & [facility] Coding staff will review the response and follow-up if needed. Please note: Queries are made part of the Legal Health Record. If you have any questions, please contact the author of this message via ITS. Claudine Weir MD A diagnosis of anemia lacks specificity to accurately reflect your patients severity of condition and clarification is needed. History/Risk Factors: Anemia, hypothyroid, cardiac arrest, ESRD on HD, CAD Clinical indicators: Hemoglobin: 13.8/11.8/13.6 Hematocrit: 41.3/36.4/41.7 Treatment: Daily lab monitoring Xarelto 20 mg w/ dinner 0.9%NS @ 20 cc/hr In order to capture the severity of condition, please clarify the type of anemia and etiology if known: Chronic blood loss anemia Iron deficiency anemia Drug induced anemia Anemia of chronic disease Nutritional anemia Anemia of chronic kidney disease Unable to determine Other, please specify Please continue to document in your progress notes and discharge summary in order to capture severity of illness and risk of mortality. Include clinical findings that support your diagnosis. MTDD
--- NOTE | 2018-01-11 11:09 | CDI ---
Last Revision, April 2017 Documentation Clarification Form 2nd Request Date: 01/09/2018 12:20:00 PM From: Sharonda Weiner RN, CCDS Admit Date: 01/07/2018 8:37:00 AM Patient Name: Chris Ramirez Visit Number: [id number] ATTENTION: The Clinical Documentation Specialists (CDI) and [facility] Coding Staff appreciate your assistance in clarifying documentation. Please respond to the clarification below the line at the bottom and electronically sign. The CDI & [facility] Coding staff will review the response and follow-up if needed. Please note: Queries are made part of the Legal Health Record. If you have any questions, please contact the author of this message via ITS. Jairo Orourke MD CHF has been documented in the PMH and requires further specificity. History/Risk Factors: CHF, ESRD, CAD, HTN, Atrial Fib Clinical Indicators: VS/Pulse OX: Temp 98.4, HR 82, RR 18, B/P 152/70, spo2 100% 2l NC NO CXR and NO BNP done this admission 12/27/15 Echocardiogram Results: EF 40-45%, RV moderately enlarged Treatment: Lasix 40 mg PO BID In your professional opinion, can you please clarify the acuity and type of CHF if known? Chronic Systolic Heart Failure: Chronic Diastolic Heart Failure: Chronic Systolic & Diastolic Heart Failure: Unable to Determine Other, please specify Please continue to document in your progress notes and discharge summary in order to capture severity of illness and risk of mortality. Include clinical findings that support your diagnosis. MTDD
[2018-01-11] MEDS: FOLIC ACID 1 MG TAB PO SCH (11:57)
[2018-01-11 15:00] VITALS: BP 121/45; PULSE 77; TEMP 97.3
[2018-01-11] MEDS ORDERED: MORPHINE ORAL SOLN 10 MG/5 ML CUP PO PRN (15:06)
[2018-01-11] MEDS ORDERED: PIPERACILLIN-TAZOBACTAM 3.375 GM in DEXTROSE/WATER 1 50ML.BAG IVPB SCH (16:00)
--- NOTE | 2018-01-11 18:04 | PN ---
PROGRESS NOTE Patient is seen for followup for end-stage renal disease. He was dialyzed yesterday. Patient is maintained on a Tuesday, , Tuesday schedule. There are no plans for cholecystectomy this admission; it will be done as outpatient. This morning patient denied any complaints, with no abdominal pain, nausea, vomiting. He is complaining of some bloating, particularly after eating. On examination, blood pressure was 105/55, heart rate 76 per minute. He is afebrile. EXAMINATION OF THE HEART: S1, S2. EXAMINATION OF LUNGS: Bilateral breath sounds are heard. ABDOMEN: Soft, non-tender. Examination of lower extremities shows no evidence of edema. DIRECTOR OF STUDENT [employer] exam is grossly intact. Labs show potassium 3.6, sodium 137. ASSESSMENT: 1. End-stage renal disease, on hemodialysis on a Tuesday, , Tuesday schedule. Will arrange for hemodialysis tomorrow if patient is still here. Otherwise, if he is discharged, he will follow up as outpatient for his regular treatment tomorrow. 2. Choledocholithiasis with improvement in symptoms as well as liver enzymes and amylase and lipase. Patient will have cholecystectomy as outpatient. 3. Acute pancreatitis, mainly obstructive, currently significantly improved. 4. Chronic kidney disease mineral bone disorder. PLAN: Hemodialysis in a.m. If the patient is still in the hospital, we will arrange for inpatient dialysis. Otherwise he can have his regular treatment as outpatient tomorrow. IRAJ / MEHDI: [id number] /
--- NOTE | 2018-01-11 18:58 | PN ---
PROGRESS NOTE DATE OF SERVICE: 01/10/2018. CHIEF COMPLAINT: Abdominal pain. HISTORY OF PRESENT ILLNESS: This gentleman is improving. Liver function studies are coming down and his pain is nearly gone. He is waiting to hear whether or not he is going to have a cholecystectomy now or be released. PHYSICAL EXAM: Abdomen is soft and not very tender in the right upper quadrant. Chest is clear. Cardiac exam is normal. IMPRESSION: 1. Abdominal pain. 2. Cholecystitis and cholelithiasis. 3. Possible common duct stone. PLAN: Await Surgery's recommendations. MMODL / IJN: [id number] /
--- NOTE | 2018-01-11 20:25 | DS ---
DISCHARGE SUMMARY CHIEF COMPLAINT: Abdominal pain. HISTORY OF PRESENT ILLNESS AND PHYSICAL EXAMINATION: Details of this man's history and physical can be found in the initial workup. LABORATORY STUDIES: While he was in the hospital he had laboratory studies, details of which can be found in the laboratory section of his chart. COURSE IN THE HOSPITAL: After admission he was placed on bedrest and started for workup for the pain. It was felt that he likely had cholecystitis, but his alkaline phosphatase, AST and ALT started to rise and there was concern that he may have a common duct stone. He was seen and followed by Surgery and Gastroenterology. He was being prepared for an ERCP when his numbers started to decline and his pain began to subside. It was felt that he could be discharged and he will require outpatient cholecystectomy. At the last minute it was learned that he was going to a group home. MEDICATIONS: He will be on: 1. Aspirin 81 mg a day. 2. Pulmicort twice a day. 3. Folate acid 1 mg a day. 4. Lasix 40 mg b.i.d. 5. Updrafts with ipratropium bromide and albuterol q.i.d. and p.r.n. 6. Levothyroxine 0.025 mg. 7. Omeprazole 20 mg once a day. 8. Prednisone 10 mg once a day. 9. Rivaroxaban 20 mg once a day. 10.Sevelamer (Renvela) 800 mg t.i.d. 11.Thiamine 100 mg once a day. FINAL DIAGNOSES: 1. Acute cholecystitis. 2. Cholangitis. OPERATIONS: None. CONSULTATIONS: 1. General Surgery. 2. Gastroenterology. He is improved. MMODL / IJN: [id number] /
--- NOTE | 2018-01-12 14:16 | CDI ---
Last Revision, April 2017 Documentation Clarification Form 3rd Request Date: 01/09/2018 11:53:00 AM From: Sharonda Weiner RN, CCDS Admit Date: 01/07/2018 8:37:00 AM Patient Name: Chris Ramirez Visit Number: [id number] ATTENTION: The Clinical Documentation Specialists (CDI) and [facility] Coding Staff appreciate your assistance in clarifying documentation. Please respond to the clarification below the line at the bottom and electronically sign. The CDI & [facility] Coding staff will review the response and follow-up if needed. Please note: Queries are made part of the Legal Health Record. If you have any questions, please contact the author of this message via ITS. Jairo Orourke MD Atrial fibrillation is documented in the PMH of the H&P and Consults and requires further Specificity. History/Risk Factors: ESRD, CAD, A-Fib, COPD, HTN Clinical Indicators: 01/06 H&P: EKG/telemetry:"Cardiac exam demonstrated atrial fibrillation with no murmurs or extra sounds." Treatment: Xarelto 20 mg PO HS In your professional opinion, can you please clarify the type of atrial fibrillation, if known? Chronic/Permanent Paroxysmal Persistent Other, please specify Unable to determine Please continue to document in your progress notes and discharge summary in order to capture severity of illness and risk of mortality. Include clinical findings that support your diagnosis. MTDD
--- NOTE | 2018-01-12 14:19 | CDI ---
Last Revision, April 2017 Documentation Clarification Form 3rd Request Date: 01/09/2018 12:07:00 PM From: Sharonda Weiner RN, CCDS Admit Date: 01/07/2018 8:37:00 AM Patient Name: Chris Ramirez Visit Number: [id number] ATTENTION: The Clinical Documentation Specialists (CDI) and [facility] Coding Staff appreciate your assistance in clarifying documentation. Please respond to the clarification below the line at the bottom and electronically sign. The CDI & [facility] Coding staff will review the response and follow-up if needed. Please note: Queries are made part of the Legal Health Record. If you have any questions, please contact the author of this message via ITS. Claudine Weir MD A diagnosis of anemia lacks specificity to accurately reflect your patients severity of condition and clarification is needed. History/Risk Factors: Anemia, hypothyroid, cardiac arrest, ESRD on HD, CAD Clinical indicators: Hemoglobin: 13.8/11.8/13.6 Hematocrit: 41.3/36.4/41.7 Treatment: Daily lab monitoring Xarelto 20 mg w/ dinner 0.9%NS @ 20 cc/hr In order to capture the severity of condition, please clarify the type of anemia and etiology if known: Chronic blood loss anemia Iron deficiency anemia Drug induced anemia Anemia of chronic disease Nutritional anemia Anemia of chronic kidney disease Unable to determine Other, please specify Please continue to document in your progress notes and discharge summary in order to capture severity of illness and risk of mortality. Include clinical findings that support your diagnosis. Anemia of chronic disease____ Please continue to document in your progress notes and discharge summary in order to capture severity of illness and risk of mortality. Include clinical findings that support your diagnosis. MTDD
--- NOTE | 2018-01-13 12:07 | CDI ---
Last Revision, April 2017 Documentation Clarification Form 3rd Request Date: 01/09/2018 12:20:00 PM From: Sharonda Weiner RN, CCDS Admit Date: 01/07/2018 8:37:00 AM Patient Name: Chris Ramirez Visit Number: [id number] ATTENTION: The Clinical Documentation Specialists (CDI) and [facility] Coding Staff appreciate your assistance in clarifying documentation. Please respond to the clarification below the line at the bottom and electronically sign. The CDI & [facility] Coding staff will review the response and follow-up if needed. Please note: Queries are made part of the Legal Health Record. If you have any questions, please contact the author of this message via ITS. Jairo Orourke MD CHF has been documented in the PMH and requires further specificity. History/Risk Factors: CHF, ESRD, CAD, HTN, Atrial Fib Clinical Indicators: VS/Pulse OX: Temp 98.4, HR 82, RR 18, B/P 152/70, spo2 100% 2l NC NO CXR and NO BNP done this admission 12/27/15 Echocardiogram Results: EF 40-45%, RV moderately enlarged Treatment: Lasix 40 mg PO BID In your professional opinion, can you please clarify the acuity and type of CHF if known? Chronic Systolic Heart Failure: Chronic Diastolic Heart Failure: Chronic Systolic & Diastolic Heart Failure: Unable to Determine Other, please specify Please continue to document in your progress notes and discharge summary in order to capture severity of illness and risk of mortality. Include clinical findings that support your diagnosis. MTDD
--- NOTE | 2018-01-16 21:39 | MISC ---
MISCELLANOUS REPORT QUERY: Atrial fibrillation chronic and permanent. MMODL / IJN: [id number] /
--- NOTE | 2018-01-16 21:42 | MISC ---
MISCELLANOUS REPORT QUERY: Chronic systolic and diastolic heart failure. MMODL / IJN: [id number] /
== END 2018-01-11 16:23 | DRG 444 ==
LOC: EC 01:01 → 4MS4W 03:49 → OBSVTOIN 01-07 08:37
PROVIDERS: ADMIT Family Medicine; ATTEND Family Medicine
PROC: 5A1D70Z Performance of Urinary Filtration, Intermittent, Less than 6 Hours Per Day (ICD-10-PCS; principal; 2018-01-07)
PROC: 5A1D70Z Performance of Urinary Filtration, Intermittent, Less than 6 Hours Per Day (ICD-10-PCS; 2018-01-10)
DX: K80.42 Calculus of bile duct with acute cholecystitis without obstruction (principal); N18.6 End stage renal disease; K85.90 Acute pancreatitis without necrosis or infection, unspecified; I13.2 Hypertensive heart and chronic kidney disease with heart failure and with stage 5 chronic kidney disease, or end stage renal disease; K83.0 Cholangitis; I50.42 Chronic combined systolic (congestive) and diastolic (congestive) heart failure; E11.22 Type 2 diabetes mellitus with diabetic chronic kidney disease; I48.2 Chronic atrial fibrillation; E11.40 Type 2 diabetes mellitus with diabetic neuropathy, unspecified; E83.9 Disorder of mineral metabolism, unspecified; J44.9 Chronic obstructive pulmonary disease, unspecified; D63.8 Anemia in other chronic diseases classified elsewhere; E03.9 Hypothyroidism, unspecified; I25.10 Atherosclerotic heart disease of native coronary artery without angina pectoris; K44.9 Diaphragmatic hernia without obstruction or gangrene; K21.9 Gastro-esophageal reflux disease without esophagitis; B19.20 Unspecified viral hepatitis C without hepatic coma; K64.9 Unspecified hemorrhoids; G89.29 Other chronic pain; M54.9 Dorsalgia, unspecified; R26.9 Unspecified abnormalities of gait and mobility; E78.5 Hyperlipidemia, unspecified; E66.9 Obesity, unspecified; Z68.31 Body mass index [BMI] 31.0-31.9, adult; Z99.2 Dependence on renal dialysis; Z79.01 Long term (current) use of anticoagulants; Z79.82 Long term (current) use of aspirin; Z79.890 Hormone replacement therapy; Z79.51 Long term (current) use of inhaled steroids; Z79.52 Long term (current) use of systemic steroids; Z79.899 Other long term (current) drug therapy; Z86.74 Personal history of sudden cardiac arrest; Z87.891 Personal history of nicotine dependence; Z86.14 Personal history of Methicillin resistant Staphylococcus aureus infection
CPT/HCPCS: 80053; 80074; 82150; 83690; 85025; 85610; 87522; 90935; 93005; 94640; 94760; 96374; 99285

== ENCOUNTER 2019-10-17 17:48 | Emergency (ER) | payer MEDICARE, OTHER ==
[2019-10-17 18:17] VITALS: RESP 18
--- NOTE | 2019-10-17 18:24 | ED ---
Recheck HPI - General Chief Complaint: Recheck/Abnormal Lab/Rx Stated Complaint: Evaluation to return to dialysis Time Seen by Provider: 10/17/19 18:00 Source: patient, RN notes reviewed Mode of arrival: EMS Limitations: no limitations - History of Present Illness Initial Comments: This is a 69-year-old male with a history of chronic renal failure who is been on dialysis for the past 3 years who was sent here for evaluation for clearance for starting dialysis tomorrow. Patient denies any cough shortness of breath fevers chills sweats palpitations no weight gain recently he states he has she is has some weight loss. No other modifying factors. He states he has been tested 3 times for the Clovid 19 he is been negative. MD Complaint: other - Related Data Home Medications Medication Instructions Recorded Confirmed Aspirin EC [Ecotrin Low Dose] 81 mg PO DAILY 12/25/15 01/06/18 Folic Acid 1 mg PO DAILY 12/25/15 01/06/18 Rivaroxaban [Xarelto] 20 mg PO W/SUPPER 12/25/15 01/06/18 Thiamine [Vitamin B-1] 100 mg PO DAILY 12/25/15 01/06/18 Furosemide [Lasix] 40 mg PO BID 01/28/16 01/06/18 Levothyroxine Sodium [Synthroid] 25 mcg PO DAILY 01/28/16 01/06/18 Omeprazole [PriLOSEC] 20 mg PO AC-BRKFST 09/28/17 01/06/18 Sevelamer [Renvela] 800 mg PO AC-TID 09/28/17 01/06/18 predniSONE 10 mg PO DAILY 09/28/17 01/06/18 B Complex W-C No.20/Folic Acid 1 mg PO DAILY 01/06/18 01/06/18 [Renal Caps Softgel] Budesonide [Pulmicort] 1 mg INHALATION RT-BID 01/06/18 01/06/18 Previous Rx's Medication Instructions Recorded Ipratropium-Albuterol Nebulize 3 ml INHALATION RT-QID ampul.neb 02/17/16 [Duoneb 0.5 mg-3 mg/3 ml Soln] Allergies Allergy/AdvReac Type Severity Reaction Status Date / Time No Known Allergies Allergy Verified 10/17/19 18:17 Review of Systems ROS Statement: Those systems with pertinent positive or pertinent negative responses have been documented in the HPI. ROS Other: All systems not noted in ROS Statement are negative. 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 O2/3L NC History of Any Multi-Drug Resistant Organisms: MRSA Date of last positivie culture/infection: 12/25/15 MDRO Source:: BLOOD Additional Past Surgical History / Comment(s): 01/2016 PICC line for ABX, 05/2013 trach and peg, 1992 torn larynx with surgical repair. OTHER SURGICAL HX UNKNOWN TO F STAFF Past Anesthesia/Blood Transfusion Reactions: No Reported Reaction Additional Past Anesthesia/Blood Transfusion Reaction / Comment(s): Pt received blood with last admission 12/2015 without reaction. Past Psychological History: No Psychological Hx Reported Smoking Status: Former smoker Past Alcohol Use History: None Reported Past Drug Use History: None Reported - Past Family History Father Family Medical History: Cancer Mother Family Medical History: Cancer Brother(s) Family Medical History: No Reported History Sister(s) Family Medical History: No Reported History Daughter(s) Family Medical History: No Reported History Son(s) Family Medical History: No Reported History General Exam - General Exam Comments Initial Comments: This is a well-developed well-nourished awake alert oriented times 3 male Limitations: no limitations General appearance: alert, in no apparent distress Head exam: Present: atraumatic, normocephalic, normal inspection Eye exam: Present: normal appearance, PERRL, EOMI. Absent: scleral icterus, conjunctival injection, periorbital swelling ENT exam: Present: normal exam, mucous membranes moist Neck exam: Present: normal inspection. Absent: tenderness, meningismus, lymphadenopathy Respiratory exam: Present: normal lung sounds bilaterally. Absent: respiratory distress, wheezes, rales, rhonchi, stridor Cardiovascular Exam: Present: regular rate, normal rhythm, normal heart sounds. Absent: systolic murmur, diastolic murmur, rubs, gallop, clicks GI/Abdominal exam: Present: soft, normal bowel sounds. Absent: distended, tenderness, guarding, rebound, rigid Extremities exam: Present: normal inspection, full ROM, normal capillary refill. Absent: tenderness, pedal edema, joint swelling, calf tenderness Back exam: Present: normal inspection Neurological exam: Present: alert, oriented X3, CN II-XII intact Psychiatric exam: Present: normal affect, normal mood Skin exam: Present: warm, dry, intact, normal color. Absent: rash Course Vital Signs 10/17/19 18:14 Temperature 98.1 F Pulse Rate 102 H Respiratory 18 Rate Blood Pressure 157/86 O2 Sat by Pulse 98 Oximetry Medical Decision Making - Medical Decision Making I did discuss the findings the patient is labs are indicative of his chronic renal failure. No other abnormality seen he was sent here for evaluation for his ability to be able to do dialysis tomorrow I believe he is able to do this he will be discharged he is in agreement with this. - Lab Data Result diagrams: 10/17/19 18:40 10/17/19 18:40 Lab Results 10/17/19 10/17/19 10/17/19 Range/Units 18:40 18:40 18:40 WBC 10.4 (3.8-10.6) k/uL RBC 4.28 L (4.30-5.90) m/uL Hgb 13.1 (13.0-17.5) gm/dL Hct 39.8 (39.0-53.0) % MCV 93.0 (80.0-100.0) fL MCH 30.5 (25.0-35.0) pg MCHC 32.8 (31.0-37.0) g/dL RDW 13.8 (11.5-15.5) % Plt Count 215 (150-450) k/uL Neutrophils % 81 % Lymphocytes % 12 % Monocytes % 4 % Eosinophils % 1 % Basophils % 0 % Neutrophils # 8.4 H (1.3-7.7) k/uL Lymphocytes # 1.3 (1.0-4.8) k/uL Monocytes # 0.4 (0-1.0) k/uL Eosinophils # 0.1 (0-0.7) k/uL Basophils # 0.0 (0-0.2) k/uL Sodium 140 (137-145) mmol/L Potassium 4.3 (3.5-5.1) mmol/L Chloride 99 (98-107) mmol/L Carbon Dioxide 23 (22-30) mmol/L Anion Gap 18 mmol/L BUN 78 H (9-20) mg/dL Creatinine 3.05 H (0.66-1.25) mg/dL Est GFR (CKD-EPI)AfAm 23 (>60 ml/min/1.73 sqM) Est GFR (CKD-EPI)NonAf 20 (>60 ml/min/1.73 sqM) Glucose 114 H (74-99) mg/dL Calcium 9.0 (8.4-10.2) mg/dL Magnesium 1.7 (1.6-2.3) mg/dL Total Bilirubin 0.3 (0.2-1.3) mg/dL AST 30 (17-59) U/L ALT 42 (4-49) U/L Alkaline Phosphatase 50 (38-126) U/L Creatine Kinase 81 (55-170) U/L NT-Pro-B Natriuret Pep 175 pg/mL Total Protein 7.7 (6.3-8.2) g/dL Albumin 4.7 (3.5-5.0) g/dL - Radiology Data Radiology results: report reviewed (I did review the imaging and report no acute findings), image reviewed Disposition Clinical Impression: Chronic renal failure syndrome Disposition: HOME SELF-CARE Condition: Good Instructions (If sedation given, give patient instructions): Chronic Kidney Disease (ED) Is patient prescribed a controlled substance at d/c from ED?: No Referrals: Adolph Rasmussen MD [Primary Care Provider] - 1-2 days
[2019-10-17 18:57] LABS: Basophils % (A) 0 %; Eosinophils # (A) 0.1 k/uL (0-0.7); Eosinophils % (A) 1 %; HCT 39.8 % (39.0-53.0); HGB 13.1 gm/dL (13.0-17.5); Lymphocytes # (A) 1.3 k/uL (1.0-4.8); Lymphocytes % (A) 12 %; MCH 30.5 pg (25.0-35.0); MCHC 32.8 g/dL (31.0-37.0); Mean Platelet Volume 7.2; Monocytes # (A) 0.4 k/uL (0-1.0); Monocytes % (A) 4 %; Neutrophils # (A) 8.4 k/uL (1.3-7.7); Neutrophils % (A) 81 %; Platelet Count 215 k/uL (150-450); RBC 4.28 m/uL (4.30-5.90); RDW 13.8 % (11.5-15.5); WBC 10.4 k/uL (3.8-10.6)
[2019-10-17 19:07] LABS: Albumin 4.7 g/dL (3.5-5.0); Magnesium 1.7 mg/dL (1.6-2.3); Potassium 4.3 mmol/L (3.5-5.1); Total Bilirubin 0.3 mg/dL (0.2-1.3); Total Protein 7.7 g/dL (6.3-8.2)
--- NOTE | 2019-10-17 19:10 | XR ---
EXAMINATION TYPE: XR chest 2V DATE OF EXAM: 10/17/2019 COMPARISON: Chest x-ray February 17, 2016. CT chest December 30, 2015. HISTORY: History of COPD with weakness. TECHNIQUE: Frontal and lateral views of the chest are obtained. FINDINGS: There is chronic parenchymal changes bilaterally without suspicious new focal air space op acity, pleural effusion, or pneumothorax seen. The cardiac silhouette size is within normal limits o n current study with atherosclerotic change aortic knob. The osseous structures are intact. IMPRESSION: Chronic parenchyma changes without acute pulmonary process.
[2019-10-17 20:02] VITALS: BP 140/77; PULSE 94; TEMP 97.9
== END 2019-10-17 21:04 | disposition home or self-care (01) ==
LOC: EC 17:48
DX: I13.2 Hypertensive heart and chronic kidney disease with heart failure and with stage 5 chronic kidney disease, or end stage renal disease (principal); E11.22 Type 2 diabetes mellitus with diabetic chronic kidney disease; E78.5 Hyperlipidemia, unspecified; I48.91 Unspecified atrial fibrillation; I25.119 Atherosclerotic heart disease of native coronary artery with unspecified angina pectoris; I50.9 Heart failure, unspecified; J44.9 Chronic obstructive pulmonary disease, unspecified; K21.9 Gastro-esophageal reflux disease without esophagitis; E11.42 Type 2 diabetes mellitus with diabetic polyneuropathy; N18.6 End stage renal disease; Z79.51 Long term (current) use of inhaled steroids; Z79.82 Long term (current) use of aspirin; Z79.899 Other long term (current) drug therapy; Z79.890 Hormone replacement therapy; Z86.74 Personal history of sudden cardiac arrest; Z87.891 Personal history of nicotine dependence; Z99.2 Dependence on renal dialysis; Z86.14 Personal history of Methicillin resistant Staphylococcus aureus infection
CPT/HCPCS: 36415; 71046; 80053; 82550; 83735; 83880; 85025; 99283